=== PATIENT | female | born 1995 | race Caucasian/White ===

== ENCOUNTER 2018-06-02 14:47 | Emergency (ER) | payer BC ==
--- NOTE | 2018-06-02 14:51 | UC ---
Head Injury HPI - HPI Summary HPI Summary: 22 yo female transitioning to male presents s/p head injury. He tells me that he suffers from parasomnia and often in the middle of the night will "flail" and has injured himself many times in the night due to this. At home he has a bed that is padded and protected to prevent injury, but recently moved to a new apartment and has no been able to protect the bed yet. Last night pt was flailing in the night and hit his head "very hard" against the wall next to him. Pt was startled awake and had immediate pain. Has been up since 3am due to pain and headache. Since that time he has developed blurry vision, dizziness, and neck pain with mental or physical activity. He called the [facility] and they said that they cannot evaluate a concussion and to come to . Pt has not taken anything for his pain. Denies weakness, numbness, tingling, or radiation of pain. - History Of Current Complaint Stated Complaint: POSS HEAD INJURY,HEADACHES Time Seen by Provider: 06/02/18 14:50 Hx Obtained From: Patient Onset/Duration: Sudden Onset Severity Currently: Moderate Severity Initially: Moderate Pain Intensity: 7 Pain Scale Used: 0-10 Numeric - Allergies/Home Medications Allergies/Adverse Reactions: Allergies Allergy/AdvReac Type Severity Reaction Status Date / Time No Known Allergies Allergy Verified 06/02/18 14:49 Home Medications: Home Medications Bentyl 1 tab PO PRN 06/02/18 [History] DULoxetine DR CAP* [Cymbalta CAP*] 40 mg PO DAILY 06/02/18 [History Confirmed ] Escitalopram Oxalate [Lexapro 10 mg] 1 tab PO DAILY 06/02/18 [History Confirmed 06/02/18] Gabapentin CAP(*) [Neurontin 100 mg CAP(*)] 100 mg PO TID 06/02/18 [History Confirmed 06/02/18] Levothyroxine TAB* [Synthroid 88 MCG TAB*] 1 tab PO DAILY 06/02/18 [History Confirmed 06/02/18] PMH/Surg Hx/FS Hx/Imm Hx - Additional Past Medical History Additional PMH: IBS Parasomnia Endocrine History: Hypothyroidism Psychological History: Anxiety, Depression - Surgical History Surgical History: None - Family History Known Family History: Positive: None Review of Systems Constitutional: Negative Skin: Negative Eyes: Negative ENT: Negative Respiratory: Negative Cardiovascular: Negative Gastrointestinal: Negative Neurovascular: Negative Musculoskeletal: Negative Neurological: Headache Psychological: Negative All Other Systems Reviewed And Are Negative: Yes Physical Exam - Summary Physical Exam Summary: GENERAL: NAD. WDWN. No pain distress. SKIN: No rashes, sores, or open wounds. HEENT: Head: AT/NC. No hematoma, ecchymosis, layne's sign, or raccoon eyes. Eyes: PERRLA. EOM intact. Ears: Hearing grossly normal. TMs intact, no bulging, erythema, or edema. NECK: Supple. Nontender. No lymphadenopathy. CHEST: CTAB. No r/r/w. No accessory muscle use. Breathing comfortably and in no distress. CV: RRR. Without m/r/g. Pulses intact. Brisk cap refill. MSK: Cervical spine: FROM, but pain with flexion and extension. Mild TTP at C5- C6. FROM in B/L UEs and LEs with symmetric strength. NEURO: A&Ox3. 3 word recall, remote, recent memory, ability to follow 2-step directions, and attention intact. CN: II: Peripheral denise intact. Vision normal. III, IV, : EOMI. MILD HORIZONTAL NYSTAGUS B/L. PERRLA. V: Sensations intact and symmetric. Opens mouth and clenches teeth. VII: No facial asymmetry. Forehead wrinkles. Grins, shuts eyes, frowns, puffs cheeks. VIII: Hearing intact to finger rub. IX, X: Swallows and coughs. Uvula midline. XI: Shrugs shoulders. Turns head against resistance. XII: No tongue deviation. Finger-to- nose are intact. Gait with normal base. Romberg: maintains balance, no pronator drift. Normal speech. No facial drooping. PSYCH: Age appropriate behavior. GCS 15 Triage Information Reviewed: Yes Vital Signs Reviewed: Yes Head Injury Course/Dx - Course Course Of Treatment: Given pt's increasing symptoms and cervical vertebral tenderness, a CT brain and c spine was performed. CT brain: IMPRESSION: NO ACUTE INTRACRANIAL PATHOLOGY. CT cervical spine: IMPRESSION: NO ACUTE OSSEOUS INJURY TO THE CERVICAL SPINE. Discussed results with pt. She likely sustained a mild concussion. Therefore I have advised her to refrain from mental/physical activities that exacerbate her symptoms. May take tylenol for discomfort. Advised to f/u with [facility] for a recheck early next week and to go to the ED if her symptoms worsen or if she develops new symptoms. - Differential Dx/Diagnosis Provider Diagnoses: Head injury. Headache Discharge - Sign-Out/Discharge Documenting (check all that apply): Patient Departure All imaging exams completed and their final reports reviewed: Yes - Discharge Plan Condition: Stable Disposition: HOME Patient Education Materials: Concussion (ED) Forms: *School Release Referrals: [facility] [Primary Care Provider] - Additional Instructions: If you develop a fever, shortness of breath, chest pain, new or worsening symptoms - please call your PCP or go to the ED. 1) Rest and avoid any mental or physical exertion/activities that exacerbate your symptoms - Billing Disposition and Condition Condition: STABLE Disposition: Home
[2018-06-02 14:59] VITALS: BP 118/73
--- NOTE | 2018-06-02 15:38 | RAD ---
HISTORY: Pain. Head trauma COMPARISONS: None TECHNIQUE: Multiple contiguous axial CT scans were obtained of the head without intravenous contrast. FINDINGS: HEMORRHAGE/INFARCT: There is no hemorrhage or acute infarct. MASSES/SHIFT: There is no mass or shift. EXTRA-AXIAL SPACES: There are no extra-axial fluid collections. SULCI AND VENTRICLES: The sulci and ventricles are normal in size and position for the patient's stated age. CEREBRUM: There are no focal parenchymal abnormalities. BRAINSTEM: There are no focal parenchymal abnormalities. CEREBELLUM: There are no focal parenchymal abnormalities. VESSELS: The vessels are grossly normal. PARANASAL SINUSES: The paranasal sinuses are clear. ORBITS: The orbits are unremarkable. BONES AND SOFT TISSUE: No bone or soft tissue abnormalities are noted. OTHER: None IMPRESSION: NO ACUTE INTRACRANIAL PATHOLOGY.
--- NOTE | 2018-06-02 15:40 | RAD ---
HISTORY: Pain. Head injury COMPARISONS: None TECHNIQUE: Multiple contiguous axial CT scans were obtained of the cervical spine without intravenous contrast, with coronal and sagittal multiplanar reformations. FINDINGS: BRAIN: The visualized brain is unremarkable CENTRAL CANAL: Evaluation of the central canal is limited on CT technique, however there is no obvious canalicular mass or epidural hemorrhage. ALIGNMENT: The alignment is normal, without subluxation or dislocation. VERTEBRAL BODIES: The odontoid process is intact. The atlantoaxial intervals are symmetric. The vertebral bodies are normal in attenuation, without fracture. JOINTS: There is no subluxation or dislocation MUSCULATURE: Unremarkable INTERVERTEBRAL DISCS: There is mild diffuse loss of intervertebral disc height. AXIAL IMAGES: On axial images, there is no osseous neural foraminal narrowing or central canal stenosis. SOFT TISSUES: The visualized soft tissues of the neck are unremarkable. The prevertebral fat stripe is preserved. OTHER: None. IMPRESSION: NO ACUTE OSSEOUS INJURY TO THE CERVICAL SPINE.
== END 2018-06-02 15:53 | disposition home or self-care (01) ==
LOC: UCEAST 14:47
DX: S09.90XA Unspecified injury of head, initial encounter (principal); W22.8XXA Striking against or struck by other objects, initial encounter; Y93.84 Activity, sleeping; Y92.032 Bedroom in apartment as the place of occurrence of the external cause; R51 Headache; G47.50 Parasomnia, unspecified; K58.9 Irritable bowel syndrome, unspecified; E03.9 Hypothyroidism, unspecified; F41.9 Anxiety disorder, unspecified; F32.9 Major depressive disorder, single episode, unspecified
CPT/HCPCS: 70450; 72125; 99201; G0463

== ENCOUNTER 2018-07-17 13:35 | Emergency (ER) | payer BC ==
[2018-07-17 13:50] VITALS: BP 133/67
--- NOTE | 2018-07-17 14:05 | UC ---
Skin Complaint HPI - HPI Summary HPI Summary: 22 year old female here with a chief complaint of rash. The rash is on her upper back and shoulders. It started right after she put topical testosterone on. Feels tight and itchy. She's been using this testosterone cream for some time now. She's never had a reaction in the past. No difficulty breathing or swallowing the rash is localized to the shoulders and upper back. - History of Current Complaint Chief Complaint: UCSkin Time Seen by Provider: 07/17/18 13:44 Stated Complaint: ALLERGIC REACTION Hx Last Menstrual Period: 06/21/18 Pain Intensity: 0 - Allergy/Home Medications Allergies/Adverse Reactions: Allergies Allergy/AdvReac Type Severity Reaction Status Date / Time benzoalcohol Allergy Rash Uncoded 07/17/18 13:58 Review of Systems All Other Systems Reviewed And Are Negative: Yes Constitutional: Positive: Negative Skin: Positive: Rash Eyes: Positive: Negative ENT: Positive: Negative Respiratory: Positive: Negative Cardiovascular: Positive: Negative Gastrointestinal: Positive: Negative Motor: Positive: Negative Neurovascular: Positive: Negative Musculoskeletal: Positive: Negative Neurological: Positive: Negative Psychological: Positive: Negative Is Patient Immunocompromised?: No PMH/Surg Hx/FS Hx/Imm Hx Previously Healthy: Yes - Surgical History Surgical History: Yes Surgery Procedure, Year, and Place: wisdom teeth removed - Family History Known Family History: Positive: None - Social History Alcohol Use: Rare Substance Use Type: Marijuana Substance Use Comment - Amount & Last Used: occasional Smoking Status (MU): Never Smoked Tobacco Physical Exam Triage Information Reviewed: Yes Appearance: Well-Appearing, No Pain Distress, Well-Nourished Vital Signs: Initial Vital Signs Temp 98.1 F 07/17/18 13:43 Pulse 83 07/17/18 13:43 Resp 16 07/17/18 13:43 BP 133/67 07/17/18 13:43 Pulse Ox 99 07/17/18 13:43 Vital Signs Reviewed: Yes Eye Exam: Normal Eyes: Positive: Conjunctiva Clear ENT: Positive: Other - OROPHARYNX OPEN,NO RESPIRATORY DISTRESS Neck exam: Normal Neck: Positive: Supple Respiratory: Positive: No respiratory distress Musculoskeletal Exam: Normal Musculoskeletal: Positive: Strength Intact, ROM Intact Neurological Exam: Normal Neurological: Positive: Alert, Muscle Tone Normal Psychological Exam: Normal Psychological: Positive: Age Appropriate Behavior Skin: Positive: Rashes - There is minimal erythema on the upper. There is no hives. The patient showed me a photograph of the area from just prior to arrival and the erythema in the photograph was more extensive and worse. Overall appears like the rash is going away. Course/Dx - Course Course Of Treatment: Rash is virtually gone in clinic. The overall plan is to not use the testosterone cream until she checks with her medical provider at [facility] on Thursday, July 19, 2018. I let her know that if she has a worsening allergic reaction or difficulty breathing or swallowing she is to get reevaluated right away. - Diagnoses Provider Diagnoses: CONTACT DERMATITIS Discharge - Sign-Out/Discharge Documenting (check all that apply): Patient Departure All imaging exams completed and their final reports reviewed: No Studies - Discharge Plan Condition: Stable Disposition: HOME Patient Education Materials: Contact Dermatitis (ED) Referrals: [facility] [Outside] Additional Instructions: FOLLOW UP WITH YOUR DOCTOR ON 07/19/18. GET RECHECKED FOR ANY WORSENING OF YOUR CONDITION; SPREAD OF RASH, DIFFICULTY BREATHING OR SWALLOWING OR QUESTIONS OR CONCERNS. - Billing Disposition and Condition Condition: STABLE Disposition: Home
== END 2018-07-17 14:10 | disposition home or self-care (01) ==
LOC: UCEAST 13:35
DX: L25.9 Unspecified contact dermatitis, unspecified cause (principal); Z88.8 Allergy status to other drugs, medicaments and biological substances
CPT/HCPCS: 99211; G0463